=== PATIENT | female | born 1955 | race Caucasian/White ===

== ENCOUNTER 2017-02-14 07:21 | Day surgery (SDC) | payer OTHER ==
[~2017-02-14] VITALS: Ht 162.6 cm; Wt 65.8 kg
[~2017-02-14 07:21] MED LIST: EQL IBUPROFEN200 MG PO; FLUARIX QUADRIV1 IN1 IM; TUBERSOL5 MG/0.1 M ID
[2017-02-14] MEDS ORDERED: NORCO1 TA1 PO (09:19)
[2017-02-14 09:53] VITALS: BP 118/65
== END 2017-02-14 09:45 | disposition home or self-care (01) | DRG 572 ==
LOC: ORM 07:21 → ENDO 08:00 → ORM 09:45
PROVIDERS: ATTEND Surgery
PROC: 0JB70ZZ Excision of Back Subcutaneous Tissue and Fascia, Open Approach (ICD-10-PCS; principal; 2017-02-14)
DX: D17.1 Benign lipomatous neoplasm of skin and subcutaneous tissue of trunk (principal); M19.90 Unspecified osteoarthritis, unspecified site; E78.00 Pure hypercholesterolemia, unspecified

== ENCOUNTER 2022-04-10 06:29 | Day surgery (SDC) | payer MEDICARE, BC ==
[~2022-04-10] VITALS: Ht 162.6 cm; Wt 63.0 kg
[~2022-04-10 06:29] MED LIST changes: +CALCIUM1250 MG PO; +CRESTOR10 MG PO; +D3 MAXIMUM5000 UNI1 PO; +MOBIC7.5 M1 PO; +NORCO1 TA1 PO
[2022-04-10 08:40] VITALS: BP 137/79
== END 2022-04-10 09:05 | disposition home or self-care (01) ==
LOC: ENDO 06:29 → ORM 09:00 → ENDO 09:00 → ORM 09:30
PROVIDERS: ATTEND Internal Medicine Gastroenterology
PROC: 0DBK8ZX Excision of Ascending Colon, Via Natural or Artificial Opening Endoscopic, Diagnostic (ICD-10-PCS; principal; 2022-04-10)
PROC: 0DBN8ZX Excision of Sigmoid Colon, Via Natural or Artificial Opening Endoscopic, Diagnostic (ICD-10-PCS; 2022-04-10)
PROC: 0D738ZZ Dilation of Lower Esophagus, Via Natural or Artificial Opening Endoscopic (ICD-10-PCS; 2022-04-10)
PROC: 0DB38ZX Excision of Lower Esophagus, Via Natural or Artificial Opening Endoscopic, Diagnostic (ICD-10-PCS; 2022-04-10)
PROC: 0DB78ZX Excision of Stomach, Pylorus, Via Natural or Artificial Opening Endoscopic, Diagnostic (ICD-10-PCS; 2022-04-10)
PROC: 0DB28ZX Excision of Middle Esophagus, Via Natural or Artificial Opening Endoscopic, Diagnostic (ICD-10-PCS; 2022-04-10)
DX: Z12.11 Encounter for screening for malignant neoplasm of colon (principal); D12.2 Benign neoplasm of ascending colon; D12.5 Benign neoplasm of sigmoid colon; K57.30 Diverticulosis of large intestine without perforation or abscess without bleeding; K64.8 Other hemorrhoids; K22.2 Esophageal obstruction; K21.00 Gastro-esophageal reflux disease with esophagitis, without bleeding; K31.7 Polyp of stomach and duodenum; K22.81 Esophageal polyp; K29.70 Gastritis, unspecified, without bleeding; E78.5 Hyperlipidemia, unspecified; Z86.010 Personal history of colon polyps; Z80.0 Family history of malignant neoplasm of digestive organs

== ENCOUNTER 2022-05-12 17:37 | Emergency (ER) | payer MEDICARE, BC ==
[~2022-05-12] VITALS: Ht 162.6 cm; Wt 63.0 kg
[2022-05-12] MEDS ORDERED: ZPAK PO (19:24)
[2022-05-12] MEDS ORDERED: BENZONATATE200 MG PO (19:24)
[2022-05-12] MEDS ORDERED: ONDANSETRON4 MG PO (19:24)
[2022-05-12 19:40] VITALS: BP 176/80
== END 2022-05-12 19:40 | disposition home or self-care (01) ==
LOC: ED 17:37
DX: B34.9 Viral infection, unspecified (principal); R11.0 Nausea; E78.00 Pure hypercholesterolemia, unspecified; Z20.822 Contact with and (suspected) exposure to COVID-19